=== PATIENT | male | born 1965 | race Two or more races ===

== ENCOUNTER 2019-10-03 21:20 | Inpatient (IN) | payer MEDICAID ==
[~2019-10-03] VITALS: Ht 172.7 cm; Wt 110.9 kg
[2019-10-03] MEDS: VANCOMYCIN 1 G PREMIX 200 ML IV SCH (21:45)
[2019-10-03] MEDS ORDERED: PIPERACILLIN/TAZ 3.375G PREMIX 50 ML IV ONE (21:45)
[2019-10-03] MEDS ORDERED: SODIUM CHLORIDE 0.9% 1000ML BAG (SEPSIS BOLUS) IV ONE (21:45)
[2019-10-03] MEDS ORDERED: NITROGLYCERIN OINT 1GM/INCH UDPKT TD ONE (22:45)
[2019-10-03] MEDS ORDERED: FUROSEMIDE 40MG/4ML VIAL IV ONE (22:45)
[2019-10-03] MEDS ORDERED: ASPIRIN 81MG TABLET PO ONE (22:45)
[2019-10-04] MEDS ORDERED: ONDANSETRON HCL 4MG/2ML INJ IV PRN (00:30)
[2019-10-04] MEDS ORDERED: ACETAMINOPHEN 325MG TABLET PO PRN (00:30)
[2019-10-04 00:50] LABS: BASOPHILS % 0.9 % (0.0-2.0); EOSINOPHILS % 3.7 % (0.0-5.0); HEMATOCRIT. 35.5 % (42.0-52.0); HEMOGLOBIN. 12.3 g/dL (14.0-18.0); LYMPHOCYTES % 20.3 % (20.0-50.0); MEAN CORPUSCULAR HEMOGLOBIN 33.1 pg (28.0-32.0); MEAN CORPUSCULAR VOLUME 95.3 fL (80.0-94.0); MEAN PLATELET VOLUME 7.6 fl (7.4-10.4); MONOCYTES % 11.8 % (2.0-8.0); NEUTROPHILS % 63.3 % (40.0-76.0); PLATELET 108 x1000/uL (130-400); RED BLOOD CELL COUNT 3.73 mill/uL (4.7-6.1); RED CELL DISTRIBUTION WIDTH 14.4 % (11.6-14.6)
[2019-10-04 00:57] LABS: CHLORIDE 106 mEq/L (98-107); INR 1.1; PROTHROMBIN TIME 11.8 sec (9.6-11.0)
[2019-10-04 01:03] LABS: ETHANOL BLOOD < 10 mg/dL
[2019-10-04 02:56] LABS: CLARITY URINE CLEAR (CLEAR); COLOR URINE YELLOW (YELLOW); KETONES URINE 1+ (NEGATIVE); LEUKOCYTE ESTERASE URINE NEGATIVE (NEGATIVE); NITRITE URINE NEGATIVE (NEGATIVE); OCCULT BLOOD URINE NEGATIVE (NEGATIVE); PH URINE 5.5 (4.5-8.0); PROTEIN URINE NEGATIVE (NEGATIVE); UROBILINOGEN URINE 0.2 E.U./dL (0.2-1.0)
[2019-10-04 03:12] LABS: *AMPHETAMINES SCREEN URINE NEGATIVE (NEGATIVE); *BARBITURATES SCREEN URINE NEGATIVE (NEGATIVE); *BENZODIAZEPINES SCREEN URINE NEGATIVE (NEGATIVE)
[2019-10-04 03:13] LABS: *COCAINE SCREEN URINE NEGATIVE (NEGATIVE); CANNABINOID URINE SCREEN NEGATIVE (NEGATIVE); METHADONE URINE SCREEN NEGATIVE (NEGATIVE); OPIATES URINE SCREEN NEGATIVE (NEGATIVE); PHENCYCLIDINE URINE SCREEN PRESUMTIVE POSITIVE (NEGATIVE)
[2019-10-04] MEDS: VANCOMYCIN 1 G PREMIX 200 ML IV SCH (04:08)
[2019-10-04 04:55] VITALS: BP 100/61
[2019-10-04 04:59] VITALS: BP 100/61
[2019-10-04] MEDS ORDERED: FURO20TA4 PO (05:13)
[2019-10-04] MEDS ORDERED: LISI-604 PO (05:13)
[2019-10-04] MEDS ORDERED: albuterol sulfate INH (05:13)
[2019-10-04 06:00] VITALS: BP 88/41
[2019-10-04 08:00] VITALS: BP 95/63
[2019-10-04] MEDS ORDERED: HEPARIN 5000 UNITS/ML VIAL SUBCUT SCH (09:00)
[2019-10-04] MEDS ORDERED: FUROSEMIDE 40MG/4ML VIAL IV SCH (09:00)
[2019-10-04 10:00] VITALS: BP 99/65
[2019-10-04 13:02] VITALS: BP 100/67
== END 2019-10-04 14:25 | disposition left against medical advice (07) | DRG 194 ==
LOC: ER 21:20 → 3WST 23:47 → EDBEDREQTM 23:50 → EDBEDREQ 23:50 → ENRESERV 10-04 03:51
PROVIDERS: ADMIT Internal Medicine; ATTEND Internal Medicine
DX: I11.0 Hypertensive heart disease with heart failure (principal); E87.1 Hypo-osmolality and hyponatremia; F16.10 Hallucinogen abuse, uncomplicated; I87.2 Venous insufficiency (chronic) (peripheral); I50.9 Heart failure, unspecified; I87.8 Other specified disorders of veins; Z53.29 Procedure and treatment not carried out because of patient's decision for other reasons; Z59.0 Homelessness; Z79.899 Other long term (current) drug therapy
CPT/HCPCS: 36415; 71045; 80053; 80305; 80320; 81003; 83880; 84484; 85025; 93005; 93970; 99285; J1644; J1940; J2543; J3370; J7030; G0480

== ENCOUNTER 2019-10-04 19:43 | Emergency (ER) | payer MEDICAID ==
[~2019-10-04] VITALS: Ht 167.6 cm; Wt 109.0 kg
[~2019-10-04 19:43] MED LIST: FURO20TA4 PO; LISI-604 PO; albuterol sulfate INH
[2019-10-04] MEDS ORDERED: ACETAMINOPHEN 325MG TABLET PO ONE (20:15)
[2019-10-06 06:30] VITALS: BP 130/77
== END 2019-10-06 10:00 | disposition home or self-care (01) ==
LOC: ER 19:51
DX: M79.604 Pain in right leg (principal); Z59.0 Homelessness; I11.0 Hypertensive heart disease with heart failure; I50.9 Heart failure, unspecified; I87.2 Venous insufficiency (chronic) (peripheral); Z75.1 Person awaiting admission to adequate facility elsewhere
CPT/HCPCS: 99285